=== PATIENT | female | born 1930 | race Hispanic/Latino ===

== ENCOUNTER → 2021-07-14 | Outpatient (CLI) | payer MEDICARE ==
[~2021-07-14] MED LIST: ENABLEX7.5 MG PO; LORAZEPAM0.5 MG PO; LOSARTAN-HCTZ1 EAC2 PO; METOPROLOL SUCC50 MG PO; PRILOSEC20 MG PO; TUSSIN DM LIQU118 ML PO; TYLENOL PO
== END ==
LOC: RAD 11:37
PROVIDERS: ATTEND Internal Medicine
DX: R07.81 Pleurodynia (principal)
CPT/HCPCS: 71101